=== PATIENT | male | born 1945 | race Two or more races ===

== ENCOUNTER 2020-07-16 03:25 | Inpatient (IN) | payer MEDICARE, OTHER ==
[2020-07-16] VITALS (7 sets, daily range): BP systolic 97–137; BP diastolic 24–52
[~2020-07-16] VITALS: Ht 162.6 cm; Wt 68.0 kg
--- NOTE | 2020-07-16 03:37 | Emergency Room Report ---
History of Present Illness General Chief Complaint: Dyspnea/Respdistress Source: Medical Record Present Illness HPI This is a 74-year-old male from a long term. He is a DNR with CPR only. He has a history of positive COVID infection in February. Also with history of diabetes and end-stage renal disease. Dialysis days are Tues, Th, and Sat. He presents with complaint of shortness of breath and increasing edema. No reported fever. Worse with exertion. Better with rest. Denies any trauma. Denies any chest pain. 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 COVID-19 Screening: Positive COVID-19 COVID-19 Testing Source: nar Patient History Past Medical History: see triage record, old chart reviewed Past Surgical History: other Pertinent Family History: none Social History: Denies: smoking Immunizations: other Reviewed Nursing Documentation: PMH: Agreed; PSxH: Agreed Review of Systems Eye: Denies: eye pain, blurred vision ENT: Denies: ear pain, nose congestion, throat swelling Respiratory: Reports: shortness of breath; Denies: cough Cardiovascular: Reports: edema; Denies: chest pain, palpitations Gastrointestinal: Denies: abdominal pain, diarrhea, nausea, vomiting Musculoskeletal: Denies: back pain, joint pain Skin: Denies: rash Neurological: Denies: headache, numbness Endocrine: Denies: increased thirst, increased urine Hematologic/Lymphatic: Denies: easy bruising All Other Systems: negative except mentioned in HPI Physical Exam Vital Signs Date Time Temp Pulse Resp B/P (MAP) Pulse Ox O2 Delivery O2 Flow Rate FiO2 07/16/20 03:25 98.1 110 30 93/56 (68) 100 Non-Rebreather 15.0 Vitals with hypoxia Sp02 EP Interpretation: reviewed, abnormal General Appearance: alert, moderate distress, Chronically Ill Head: normocephalic, atraumatic Eyes: bilateral eye PERRL, bilateral eye EOMI ENT: hearing grossly normal, normal pharynx Neck: full range of motion, supple, no meningismus Respiratory: chest non-tender, respiratory distress, decreased breath sounds, rales Cardiovascular #1: regular rate, rhythm, no murmur Gastrointestinal: normal bowel sounds, non tender, no mass, no organomegaly, no bruit, non-distended Musculoskeletal: back normal, normal range of motion, swelling - Generalized anasarca Psychiatric: mood/affect normal Procedures Critical Care Time Critical Care Time Critical care is mandated in this patient who presented with respiratory distress secondary to COVID pneumonia. Patient require my urgent intervention to attenuate the risks of metabolic collapse which may lead to cardiovascular collapse and . Critical care time is 35 minutes excluding any reportable procedure. Critical care time included evaluation, multiple reevaluation, looking at old charts, interpreting laboratory and diagnostic data, discussing case with patient and family and consultants, and charting. Medical Decision Making Diagnostic Impression: Primary Impression: Pneumonia due to COVID-19 virus Additional Impressions: Respiratory failure with hypoxia Qualified Codes: J96.01 - Acute respiratory failure with hypoxia Anemia, chronic renal failure Qualified Codes: N18.5 - Chronic kidney disease, stage 5; D63.1 - Anemia in chronic kidney disease Acute metabolic encephalopathy ESRD (end stage renal disease) on dialysis Anasarca ER Course Presents with respiratory distress secondary to cold with pneumonia and also fluid overloaded. Prognosis poor because of his multiple medical problems. Antibiotics, steroid and Lovenox given here. Patient will be admitted for further work-up. I discussed the case with Dr. Tom who will admit. EKG Diagnostic Results Rate: tachycardiac Rhythm: NSR ST Segments: other - NSST changes Rhythm Strip Diag. Results EP Interpretation: yes Rate: 100 Rhythm: NSR, no PVC's, no ectopy Chest X-Ray Diagnostic Results Chest X-Ray Diagnostic Results : Chest X-Ray Ordered: Yes # of Views/Limited/Complete: 1 View EP Interpretation: Yes Interpretation: no pneumothorax, other - Bilateral infiltrates and edema Impression: Other - b/l infiltrates and pulm edema. Electronically Signed by: Mike Mckay MD Last Vital Signs Date Time Temp Pulse Resp B/P (MAP) Pulse Ox O2 Delivery O2 Flow Rate FiO2 07/16/20 03:25 98.1 110 30 93/56 (68) 100 Non-Rebreather 15.0 Status: improved Disposition: ADMITTED INPATIENT Condition: Serious Mike Mckay MD Jul 16, 2020 03:36
[2020-07-16] MEDS ORDERED: cefTRIAXone 1 GM in NS 55 ML IV ONE (03:45)
[2020-07-16] MEDS ORDERED: Enoxaparin 80mg Inj SUBQ ONE (03:45)
[2020-07-16] MEDS ORDERED: Azithromycin 500 MG in NS 275 ML IVPB ONE (03:45)
[2020-07-16] MEDS ORDERED: dexAMETHasone 10mg/ml Inj IV ONE (03:45)
[2020-07-16 03:56] LABS: HEMATOCRIT 21.8 % (42.0-52.0); HEMOGLOBIN 7.2 G/DL (14.2-18.0); MEAN CORPUSCULAR VOLUME 84 FL (80-99); PLATELET COUNT 275 K/UL (150-450); RED BLOOD COUNT 2.59 M/UL (4.70-6.10); RED CELL DISTRIBUTION WIDTH 14.8 % (11.6-14.8); WHITE BLOOD COUNT 11.2 K/UL (4.8-10.8)
[2020-07-16 04:13] LABS: ANION GAP 8 mmol/L (5-15); BLOOD UREA NITROGEN 44 mg/dL (7-18); CALCIUM 7.3 MG/DL (8.5-10.1); CARBON DIOXIDE 26 MMOL/L (21-32); CHLORIDE 100 MMOL/L (98-107); CREATININE 4.3 MG/DL (0.55-1.30); POTASSIUM 4.3 MMOL/L (3.5-5.1); SODIUM 134 MMOL/L (136-145)
[2020-07-16 04:24] LABS: INR 1.1 (0.9-1.1)
[2020-07-16 04:28] LABS: ALBUMIN 1.3 G/DL (3.4-5.0); ALBUMIN/GLOBULIN RATIO 0.2 (1.0-2.7); ALKALINE PHOSPHATASE 172 U/L (46-116); ASPARTATE AMINO TRANSFERASE 94 U/L (15-37); BILIRUBIN,TOTAL 0.6 MG/DL (0.2-1.0); CKMB 2.7 NG/ML (0.0-3.6); CREATINE KINASE 312 U/L (26-308); FERRITIN 1531 NG/ML (8-388); LACTATE DEHYDROGENASE 537 U/L (81-234)
[2020-07-16 04:51] LABS: ALANINE AMINOTRANSFERASE 30 U/L (12-78)
[2020-07-16] MEDS ORDERED: AMLODIPINE BESY10 MG ORAL (05:03)
[2020-07-16] MEDS ORDERED: ATORVASTATIN CA20 MG ORAL (05:03)
[2020-07-16] MEDS ORDERED: URSODIOL300 MG ORAL (05:10)
[2020-07-16] MEDS ORDERED: MIRALAX17 G2 ORAL (05:10)
[2020-07-16] MEDS ORDERED: OMEPRAZOLE20 M2 ORAL (05:10)
[2020-07-16] MEDS ORDERED: ELIQUIS2.5 MG PO (05:10)
[2020-07-16] MEDS ORDERED: ZOFRAN4 M3 ORAL (05:10)
[2020-07-16] MEDS ORDERED: METOPROLOL TART25 MG ORAL (05:10)
[2020-07-16] MEDS ORDERED: ZYRTEC10 MG ORAL (05:10)
[2020-07-16] MEDS ORDERED: Tylenol #3 tab (300mg/30mg) ORAL PRN (08:15)
[2020-07-16] MEDS ORDERED: Miralax 17gm pkt ORAL PRN (09:00)
[2020-07-16] MEDS ORDERED: Albuterol/Ipratropium 3ml neb HHN PRN (09:00)
[2020-07-16] MEDS ORDERED: Azithromycin 250mg tab ORAL SCH (09:00)
[2020-07-16] MEDS ORDERED: Zolpidem 5mg tab ORAL PRN (09:00)
[2020-07-16] MEDS: Metoprolol Tartrate 12.5mg TAB ORAL SCH ×3 (09:40→21:42)
[2020-07-16] MEDS: Eliquis 2.5mg tablet ORAL SCH ×2 (09:41→17:46)
--- NOTE | 2020-07-16 10:17 | Consultation ---
History of Present Illness General Date patient seen: Jul 16, 2020 Chief Complaint: Dyspnea/Respdistress Reason for Consultation: COVID 19 PNA Present Illness HPI Mr. Suazo is a 74 yo male with PMHx of DM, ESRD on HD who presented to the ED on 07/15/20 from his long-term with SOB. He had COVID 19 infection in Jun 2020. His COVID 19 test in the ED was positive as well. He has no fever, mild leukocytosis. He was having SOB and increased edema and ZAVALA so was sent to the ED. CXR shows B/L infiltrates and pulm edema per ED read. Radiology read is pending. ID was consulted for COVID 19 PNA PMHx/PSHx DM ESRD on HD COVID 19 infection - 07/08/20 af SNF SocHx Lives at a SNF No E/T/D FamHx Not contributory Allergies: Coded Allergies: No Known Allergies (Unverified , 07/16/20) Medication History Scheduled Amlodipine Besylate* (Amlodipine Besylate*), 10 MG ORAL DAILY, (Reported) Apixaban (Eliquis), 2.5 MG PO BID, (Reported) Atorvastatin Calcium* (Atorvastatin Calcium*), 20 MG ORAL BEDTIME, (Reported) Cetirizine Hcl* (Zyrtec*), 10 MG ORAL DAILY, (Reported) Metoprolol Tartrate* (Metoprolol Tartrate*), 12.5 MG ORAL BID, (Reported) Omeprazole (Omeprazole), 20 MG ORAL DAILY, (Reported) Polyethylene Glycol 3350* (Miralax*), 17 GM ORAL DAILY, (Reported) Ursodiol (Ursodiol*), 250 MG ORAL TWICE A DAY, (Reported) Scheduled PRN Ondansetron* (Zofran*), 4 MG ORAL Q6H PRN for Nausea & Vomiting, (Reported) Patient History Healthcare decision maker Resuscitation status Advanced Directive on File Review of Systems ROS Narrative 12 point ROS negative except as noted in the HPI Physical Exam Physical Exam Narrative GEN: NAD on NRB HEENT: NCAT, MMM, EOMI NECK: Supple, good ROM LUNGS: CTAB, no W HEART: RRR, S1, S2 ABD: SOFT, NT, ND, + BS NEURO: A/O x 4 no focal deficits SKIN: No Rash, Normal in color Last 24 Hour Vital Signs Date Time Temp Pulse Resp B/P (MAP) Pulse Ox O2 Delivery O2 Flow Rate FiO2 07/16/20 09:41 97 137/52 07/16/20 09:40 97 137/52 07/16/20 08:15 Non-Rebreather 15.0 07/16/20 06:15 98.1 103 22 108/45 100 Non-Rebreather 15.0 07/16/20 05:35 98.1 103 22 115/52 100 Non-Rebreather 15.0 07/16/20 05:24 98.1 105 22 100/24 100 Non-Rebreather 15.0 07/16/20 03:35 105 26 Non-Rebreather 15.0 07/16/20 03:35 98.1 105 26 97/32 100 Non-Rebreather 15.0 07/16/20 03:25 98.1 110 30 93/56 (68) 100 Non-Rebreather 15.0 Intake and Output 07/15/20 07/16/20 19:00 07:00 Intake Total 0 ml Balance 0 ml Intake Oral 0 ml Laboratory Tests Test 07/16/20 03:30 White Blood Count 11.2 K/UL (4.8-10.8) H Red Blood Count 2.59 M/UL (4.70-6.10) L Hemoglobin 7.2 G/DL (14.2-18.0) L Hematocrit 21.8 % (42.0-52.0) L Mean Corpuscular Volume 84 FL (80-99) Mean Corpuscular Hemoglobin 27.8 PG (27.0-31.0) Mean Corpuscular Hemoglobin Concent 33.0 G/DL (32.0-36.0) Red Cell Distribution Width 14.8 % (11.6-14.8) Platelet Count 275 K/UL (150-450) Mean Platelet Volume 5.5 FL (6.5-10.1) L Neutrophils (%) (Auto) % (45.0-75.0) Lymphocytes (%) (Auto) % (20.0-45.0) Monocytes (%) (Auto) % (1.0-10.0) Eosinophils (%) (Auto) % (0.0-3.0) Basophils (%) (Auto) % (0.0-2.0) Prothrombin Time 12.0 SEC (9.30-11.50) H Prothromb Time International Ratio 1.1 (0.9-1.1) Activated Partial Thromboplast Time 35 SEC (23-33) H D-Dimer 2.35 mg/L FEU (0.00-0.49) H Sodium Level 134 MMOL/L (136-145) L Potassium Level 4.3 MMOL/L (3.5-5.1) Chloride Level 100 MMOL/L (98-107) Carbon Dioxide Level 26 MMOL/L (21-32) Anion Gap 8 mmol/L (5-15) Blood Urea Nitrogen 44 mg/dL (7-18) H Creatinine 4.3 MG/DL (0.55-1.30) H Estimat Glomerular Filtration Rate 13.6 mL/min (>60) Glucose Level 133 MG/DL (74-106) H Lactic Acid Level 1.80 mmol/L (0.4-2.0) Calcium Level 7.3 MG/DL (8.5-10.1) L Ferritin 1531 NG/ML (8-388) H Total Bilirubin 0.6 MG/DL (0.2-1.0) Aspartate Amino Transf (AST/SGOT) 94 U/L (15-37) H Alanine Aminotransferase (ALT/SGPT) 30 U/L (12-78) Alkaline Phosphatase 172 U/L (46-116) H Lactate Dehydrogenase 537 U/L (81-234) H Total Creatine Kinase 312 U/L (26-308) H Creatine Kinase MB 2.7 NG/ML (0.0-3.6) Creatine Kinase MB Relative Index 0.8 Troponin I 0.058 ng/mL (0.000-0.056) C-Reactive Protein, Quantitative 16.8 mg/dL (0.00-0.90) H Pro-B-Type Natriuretic Peptide > 28392 pg/mL (0-125) H Total Protein 6.8 G/DL (6.4-8.2) Albumin 1.3 G/DL (3.4-5.0) L Globulin 5.5 g/dL Albumin/Globulin Ratio 0.2 (1.0-2.7) L Lipase 88 U/L (73-393) Microbiology Date/Time Source Procedure Growth Status 07/16/20 04:20 Rectum Received 10/1/20 03:30 Nasopharynx SARS-CoV-2 RdRp Gene Assay - Final Complete Height (Feet): 5 Height (Inches): 4.00 Weight (Pounds): 150 Medications Current Medications Medications (Trade) Dose Ordered Sig/Ad Route PRN Reason Start Time Stop Time Status Last Admin Dose Admin Acetaminophen (Tylenol) 650 mg Q4H PRN ORAL fever 07/16/20 09:00 08/15/20 08:59 Acetaminophen/ Codeine Phosphate (Tylenol #3) 1 tab Q6H PRN ORAL For Pain 07/16/20 08:15 07/23/20 08:14 Albuterol/ Ipratropium (Combivent Respimat) 1 puff Q6H PRN INH Shortness of Breath 07/16/20 09:15 08/15/20 09:14 Amlodipine Besylate (Norvasc) 10 mg DAILY ORAL 07/16/20 09:00 08/15/20 08:59 07/16/20 09:41 Apixaban (Eliquis) 2.5 mg BID ORAL 07/16/20 09:00 10/14/20 08:59 07/16/20 09:41 Atorvastatin Calcium (Lipitor) 20 mg BEDTIME ORAL 07/16/20 21:00 10/14/20 20:59 Azithromycin (Zithromax) 250 mg DAILY ORAL 07/16/20 09:00 07/23/20 08:59 07/16/20 09:40 Ceftriaxone Sodium 1 gm/ Dextrose 55 ml @ 110 mls/hr Q24H IVPB 07/17/20 03:00 07/24/20 02:59 Clonidine HCl (Catapres Tab) 0.1 mg Q4H PRN ORAL For High Blood Pressure 07/16/20 09:00 10/14/20 08:59 Dexamethasone Sodium Phosphate (Decadron 4mg/ml vial) 6 mg DAILY IVP 07/16/20 09:00 07/25/20 09:01 07/16/20 09:41 Dextrose (Dextrose 50%) 25 ml Q30M PRN IV Hypoglycemia 07/16/20 08:15 10/14/20 08:14 Dextrose (Dextrose 50%) 50 ml Q30M PRN IV Hypoglycemia 07/16/20 08:15 10/14/20 08:14 Insulin Aspart (NovoLOG) BEFORE MEALS AND HS SUBQ 07/16/20 11:30 10/14/20 11:29 Metoprolol Tartrate (Lopressor) 12.5 mg Q12HR ORAL 07/16/20 09:00 10/14/20 08:59 07/16/20 09:40 Ondansetron HCl (Zofran) 4 mg Q6H PRN IVP Nausea & Vomiting 07/16/20 09:00 08/15/20 08:59 Polyethylene Glycol (Miralax) 17 gm HSPRN PRN ORAL Constipation 07/16/20 09:00 08/15/20 08:59 Zolpidem Tartrate (Ambien) 5 mg HSPRN PRN ORAL Insomnia 07/16/20 09:00 07/23/20 08:59 Assessment/Plan Assessment/Plan: 74 yo male with PMHx of DM, ESRD on HD who presented to the ED on 07/15/20 from his long-term with SOB. COVID 19 PNA CXR B.L infiltrates COVID 19 Pos [facility] - 07/08/20 and in ED on 07/15/20 No Fever Mild Leukocytosis DM ESRD on HD COVID 19 infection - 07/08/20 af SNF QTc 474 PLAN - Continue Ceftriaxone #2 and Azithromycin #2 - Continue Dexamethisone #2 - Monitor Respiratory status - Monitor CBC and Temps Thank you for this consult. [facility] will continue to follow Mr. Suazo with you. Babak Sharma MD Jul 16, 2020 10:17
--- NOTE | 2020-07-16 10:30 | Consultation ---
Consult Note Consult Note Asked to evaluate at the request of Dr. oTm for dialysis management I called care home, patient receives dialysis at [facility] under a care of !? 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 He is a DNR with CPR only. He has a history of positive COVID infection in February. Also with history of diabetes and end-stage renal disease. Dialysis days are Tues, Thurs, and Sat. He presents with complaint of shortness of breath and increasing edema. No reported fever. Worse with exertion. Better with rest. Denies any trauma. Denies any chest pain. 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 COVID-19 Screening: Positive COVID-19 COVID-19 Testing Source: derek Past Medical History: see triage record, old chart reviewed Past Surgical History: other Pertinent Family History: none Social History: Denies: smoking Immunizations: other Reviewed Nursing Documentation: PMH: Agreed; PSxH: Agreed Patient poor historian somewhat encephalopathic Lab data reviewed limited PE , uncooporative Last 24 Hour Vital Signs Date Time Temp Pulse Resp B/P (MAP) Pulse Ox O2 Delivery O2 Flow Rate FiO2 07/16/20 09:41 97 137/52 07/16/20 09:40 97 137/52 07/16/20 09:00 Non-Rebreather 15.0 07/16/20 08:15 Non-Rebreather 15.0 07/16/20 06:15 98.1 103 22 108/45 100 Non-Rebreather 15.0 07/16/20 05:35 98.1 103 22 115/52 100 Non-Rebreather 15.0 07/16/20 05:24 98.1 105 22 100/24 100 Non-Rebreather 15.0 07/16/20 03:35 105 26 Non-Rebreather 15.0 07/16/20 03:35 98.1 105 26 97/32 100 Non-Rebreather 15.0 07/16/20 03:25 98.1 110 30 93/56 (68) 100 Non-Rebreather 15.0 GEN: NAD on NRB HEENT: NCAT, MMM, NECK: Supple, Limited ROM LUNGS: decrease BS bases HEART: RRR, S1, S2, Tachy ABD: SOFT, NT, ND, + BS NEURO: Encephalopathic SKIN: No Rash, Normal in color . . Assessment/Plan Imp: End-stage renal disease on hemodialysis Pneumonia, COVID-19 virus Hypoxia due to pneumonia Anemia of chronic kidney disease Acute toxic metabolic encephalopathy Anasarca Elevated liver enzymes Plan: Hemodialysis today, [facility] Discontinue Lipitor due to elevated LFTs Protonix, stool softeners Continue per ID Anemia work-up Epogen subcu DC blood pressure medications, clonidine PRN for high blood pressure Continue per consultants Jefry Salgado MD Jul 16, 2020 10:30
--- NOTE | 2020-07-16 11:11 | Consultation ---
History of Present Illness General Date patient seen: Jul 16, 2020 Chief Complaint: Dyspnea/Respdistress Reason for Consultation: COVID 19 PNA Present Illness HPI 74-year-old male with a hx of ESRF, DM, HTN, positive COVID infection in February, skilled nursing resident presented to ER with complaint of shortness of breath and increasing edema. No reported fever. Worse with exertion. He was afebrile in ER and cxr was not done. He is on 1005 NRM and saturating borderline. Allergies: Coded Allergies: No Known Allergies (Unverified , 07/16/20) Medication History Scheduled Amlodipine Besylate* (Amlodipine Besylate*), 10 MG ORAL DAILY, (Reported) Apixaban (Eliquis), 2.5 MG PO BID, (Reported) Atorvastatin Calcium* (Atorvastatin Calcium*), 20 MG ORAL BEDTIME, (Reported) Cetirizine Hcl* (Zyrtec*), 10 MG ORAL DAILY, (Reported) Metoprolol Tartrate* (Metoprolol Tartrate*), 12.5 MG ORAL BID, (Reported) Omeprazole (Omeprazole), 20 MG ORAL DAILY, (Reported) Polyethylene Glycol 3350* (Miralax*), 17 GM ORAL DAILY, (Reported) Ursodiol (Ursodiol*), 250 MG ORAL TWICE A DAY, (Reported) Scheduled PRN Ondansetron* (Zofran*), 4 MG ORAL Q6H PRN for Nausea & Vomiting, (Reported) Patient History Healthcare decision maker Resuscitation status Advanced Directive on File Past Medical/Surgical History Past Medical/Surgical History: (1) History of hypertension (2) History of diabetes mellitus (3) ESRD (end stage renal disease) on dialysis Review of Systems All Other Systems: negative except mentioned in HPI Physical Exam General Appearance: WD/WN, no apparent distress Lines, tubes and drains: peripheral HEENT: normocephalic, atraumatic Neck: non-tender, supple Respiratory/Chest: chest wall non-tender, lungs clear Cardiovascular/Chest: normal peripheral pulses Abdomen: normal bowel sounds, non tender Extremities: normal range of motion Skin Exam: normal pigmentation Last 24 Hour Vital Signs Date Time Temp Pulse Resp B/P (MAP) Pulse Ox O2 Delivery O2 Flow Rate FiO2 07/16/20 09:41 97 137/52 07/16/20 09:40 97 137/52 07/16/20 09:00 Non-Rebreather 15.0 07/16/20 08:15 Non-Rebreather 15.0 07/16/20 06:15 98.1 103 22 108/45 100 Non-Rebreather 15.0 07/16/20 05:35 98.1 103 22 115/52 100 Non-Rebreather 15.0 07/16/20 05:24 98.1 105 22 100/24 100 Non-Rebreather 15.0 07/16/20 03:35 105 26 Non-Rebreather 15.0 07/16/20 03:35 98.1 105 26 97/32 100 Non-Rebreather 15.0 07/16/20 03:25 98.1 110 30 93/56 (68) 100 Non-Rebreather 15.0 l Intake and Output 07/15/20 07/16/20 19:00 07:00 Intake Total 0 ml Balance 0 ml Intake Oral 0 ml Laboratory Tests Test 07/16/20 03:30 White Blood Count 11.2 K/UL (4.8-10.8) H Red Blood Count 2.59 M/UL (4.70-6.10) L Hemoglobin 7.2 G/DL (14.2-18.0) L Hematocrit 21.8 % (42.0-52.0) L Mean Corpuscular Volume 84 FL (80-99) Mean Corpuscular Hemoglobin 27.8 PG (27.0-31.0) Mean Corpuscular Hemoglobin Concent 33.0 G/DL (32.0-36.0) Red Cell Distribution Width 14.8 % (11.6-14.8) Platelet Count 275 K/UL (150-450) Mean Platelet Volume 5.5 FL (6.5-10.1) L Neutrophils (%) (Auto) % (45.0-75.0) Lymphocytes (%) (Auto) % (20.0-45.0) Monocytes (%) (Auto) % (1.0-10.0) Eosinophils (%) (Auto) % (0.0-3.0) Basophils (%) (Auto) % (0.0-2.0) Prothrombin Time 12.0 SEC (9.30-11.50) H Prothromb Time International Ratio 1.1 (0.9-1.1) Activated Partial Thromboplast Time 35 SEC (23-33) H D-Dimer 2.35 mg/L FEU (0.00-0.49) H Sodium Level 134 MMOL/L (136-145) L Potassium Level 4.3 MMOL/L (3.5-5.1) Chloride Level 100 MMOL/L (98-107) Carbon Dioxide Level 26 MMOL/L (21-32) Anion Gap 8 mmol/L (5-15) Blood Urea Nitrogen 44 mg/dL (7-18) H Creatinine 4.3 MG/DL (0.55-1.30) H Estimat Glomerular Filtration Rate 13.6 mL/min (>60) Glucose Level 133 MG/DL (74-106) H Lactic Acid Level 1.80 mmol/L (0.4-2.0) Uric Acid Pending Calcium Level 7.3 MG/DL (8.5-10.1) L Iron Level Pending Unsaturated Iron Binding Pending Ferritin 1531 NG/ML (8-388) H Total Bilirubin 0.6 MG/DL (0.2-1.0) Aspartate Amino Transf (AST/SGOT) 94 U/L (15-37) H Alanine Aminotransferase (ALT/SGPT) 30 U/L (12-78) Alkaline Phosphatase 172 U/L (46-116) H Lactate Dehydrogenase 537 U/L (81-234) H Total Creatine Kinase 312 U/L (26-308) H Creatine Kinase MB 2.7 NG/ML (0.0-3.6) Creatine Kinase MB Relative Index 0.8 Troponin I 0.058 ng/mL (0.000-0.056) C-Reactive Protein, Quantitative 16.8 mg/dL (0.00-0.90) H Pro-B-Type Natriuretic Peptide > 21284 pg/mL (0-125) H Total Protein 6.8 G/DL (6.4-8.2) Albumin 1.3 G/DL (3.4-5.0) L Globulin 5.5 g/dL Albumin/Globulin Ratio 0.2 (1.0-2.7) L Lipase 88 U/L (73-393) Vitamin B12 Level Pending Folate Pending Microbiology Date/Time Source Procedure Growth Status 07/16/20 04:20 Rectum Received 07/16/20 03:30 Nasopharynx SARS-CoV-2 RdRp Gene Assay - Final Complete Height (Feet): 5 Height (Inches): 4.00 Weight (Pounds): 150 Medications Current Medications Medications (Trade) Dose Ordered Sig/Ad Route PRN Reason Start Time Stop Time Status Last Admin Dose Admin Acetaminophen (Tylenol) 650 mg Q4H PRN ORAL fever 07/16/20 09:00 08/15/20 08:59 Acetaminophen/ Codeine Phosphate (Tylenol #3) 1 tab Q6H PRN ORAL For Pain 07/16/20 08:15 07/23/20 08:14 Albuterol/ Ipratropium (Combivent Respimat) 1 puff Q6H PRN INH Shortness of Breath 07/16/20 09:15 08/15/20 09:14 Apixaban (Eliquis) 2.5 mg BID ORAL 07/16/20 09:00 10/14/20 08:59 07/16/20 09:41 Azithromycin (Zithromax) 250 mg DAILY ORAL 07/16/20 09:00 07/23/20 08:59 07/16/20 09:40 Ceftriaxone Sodium 1 gm/ Dextrose 55 ml @ 110 mls/hr Q24H IVPB 07/17/20 03:00 07/24/20 02:59 Clonidine HCl (Catapres Tab) 0.1 mg Q4H PRN ORAL For High Blood Pressure 07/16/20 09:00 10/14/20 08:59 Dexamethasone Sodium Phosphate (Decadron 4mg/ml vial) 6 mg DAILY IVP 07/16/20 09:00 07/25/20 09:01 07/16/20 09:41 Dextrose (Dextrose 50%) 25 ml Q30M PRN IV Hypoglycemia 07/16/20 08:15 10/14/20 08:14 Dextrose (Dextrose 50%) 50 ml Q30M PRN IV Hypoglycemia 07/16/20 08:15 10/14/20 08:14 Docusate Sodium (Colace) 100 mg TWICE A DAY ORAL 07/16/20 18:00 08/15/20 17:59 Epoetin Tomas (Epoetin Tomas(ESRD on dialysis)) 10,000 unit MON-MON-MON SUBQ 07/17/20 21:00 10/15/20 20:59 Insulin Aspart (NovoLOG) BEFORE MEALS AND HS SUBQ 07/16/20 11:30 10/14/20 11:29 Metoprolol Tartrate (Lopressor) 12.5 mg Q12HR ORAL 07/16/20 09:00 10/14/20 08:59 07/16/20 09:40 Ondansetron HCl (Zofran) 4 mg Q6H PRN IVP Nausea & Vomiting 07/16/20 09:00 08/15/20 08:59 Pantoprazole (Protonix) 40 mg DAILY ORAL 07/16/20 10:45 08/15/20 10:44 Polyethylene Glycol (Miralax) 17 gm HSPRN PRN ORAL Constipation 07/16/20 09:00 08/15/20 08:59 Zolpidem Tartrate (Ambien) 5 mg HSPRN PRN ORAL Insomnia 07/16/20 09:00 07/23/20 08:59 Assessment/Plan Problem List: (1) Respiratory failure with hypoxia ICD Codes: J96.91 - Respiratory failure, unspecified with hypoxia SNOMED: 72221250196773910 Qualifiers: Qualified Codes: J96.01 - Acute respiratory failure with hypoxia (2) Pneumonia due to COVID-19 virus ICD Codes: U07.1 - COVID-19; J12.89 - Other viral pneumonia SNOMED: 801659274467990337 (3) ESRD (end stage renal disease) on dialysis ICD Codes: N18.6 - End stage renal disease; Z99.2 - Dependence on renal dialysis SNOMED: 712032084, [id number] (4) Anemia, chronic renal failure ICD Codes: N18.9 - Chronic kidney disease, unspecified; D63.1 - Anemia in chronic kidney disease SNOMED: [id number], [id number] Qualifiers: Qualified Codes: N18.5 - Chronic kidney disease, stage 5; D63.1 - Anemia in chronic kidney disease (5) History of hypertension ICD Codes: Z86.79 - Personal history of other diseases of the circulatory system SNOMED: 146202917 (6) History of diabetes mellitus ICD Codes: Z86.39 - Personal history of other endocrine, nutritional and metabolic disease SNOMED: 155102543 Assessment/Plan: titrate fio2 to sat of 92% breathing treatment abx as per ID HD by nephrology prbc prn dvt prophylaxis monitor BP Matt Michael MD Jul 16, 2020 11:11
[2020-07-16] MEDS ORDERED: NovoLOG Insulin Flexpen SUBQ SCH (11:30)
[2020-07-16] MEDS: NovoLOG Insulin Flexpen SUBQ SCH ×3 (11:30→21:00)
[2020-07-16 11:54] LABS: % IRON SATURATION 15 % (15-50); IRON 20 ug/dL (50-175); TOTAL IRON BINDING CAPACITY 131 ug/dL (250-450)
--- NOTE | 2020-07-16 12:35 | Diagnostic Imaging Report ---
Indication: Shortness of breath Technique: One view of the chest Comparison: none Findings: There are bilateral diffuse interstitial and airspace opacities. There are bilateral pleural effusions. The heart is enlarged. There is a left jugular tunneled dialysis catheter. There is evidence of prior median sternotomy Impression: Diffuse extensive bilateral interstitial and airspace edema versus infiltrates. Bilateral pleural effusions Cardiomegaly Other findings as noted
--- NOTE | 2020-07-16 16:47 | History & Physical ---
History and Physical History & Physicial Dictated for int Med-Dr Tom no. [id number]. Cameron Choi MD Jul 16, 2020 16:47
--- NOTE | 2020-07-16 17:33 | Cardiology Report ---
APPROVED REPORT EKG Measurement Heart [id number] <Conclusion> Sinus tachycardia NS ST-T abnormality Abnormal ECG
[2020-07-16] MEDS ORDERED: Docusate 100mg cap ORAL SCH (18:00)
--- NOTE | 2020-07-16 18:15 | History and Physical Report ---
DATE OF ADMISSION: 07/16/2020 CHIEF COMPLAINT: Patient is a 74-year-old female, who presents with a chief complaint of shortness of breath and bilateral lower extremity swelling. HISTORY OF PRESENT ILLNESS: Patient is a resident of [facility]. Patient tested COVID positive in February of 2020. Patient states history of present illness began 2 days prior to admission. Patient began to experience shortness of breath. Patient also noticed swelling of the bilateral lower extremities. Patient presented to [facility] emergency room. Patient tested positive for COVID-19. Patient was also found to have bilateral infiltrates on the chest x-ray. Patient is admitted with COVID-19 pneumonia and edema. REVIEW OF SYSTEMS: CONSTITUTIONAL: Patient denies weight loss or gain. Patient denies fevers or chills. HEENT: Patient denies ear or throat pain. Patient denies headache. CARDIOVASCULAR: Patient denies palpitations or chest pain. CHEST: Patient complains of shortness of breath. Patient denies wheezes. ABDOMEN: Patient denies nausea, vomiting, diarrhea, or constipation. GENITOURINARY: Patient denies dysuria or increased frequency of urination. NEUROMUSCULAR: Patient complains of bilateral lower extremity swelling as above. Patient denies seizures or generalized weakness. PAST MEDICAL HISTORY: Significant for: 1. Type 2 diabetes. 2. Hypertension. 3. End-stage renal disease, on hemodialysis every Monday, , and Monday. 4. COVID-19 positive in February of 2020. 5. Atrial flutter. 6. Iron deficiency anemia. PAST SURGICAL HISTORY: Significant for arteriovenous graft for dialysis. CURRENT MEDICATIONS: 1. Amlodipine 10 mg 1 tablet p.o. daily. 2. Atorvastatin 20 mg p.o. at bedtime. 3. Cetirizine 5 mg p.o. daily. 4. Eliquis 2.5 mg p.o. twice daily. 5. Metoprolol 12.5 mg p.o. twice daily. 6. MiraLAX 17 g p.o. p.r.n. constipation. 7. Nephro-Simran 0.8 mg p.o. daily. 8. Nordheim-3 1000 mg p.o. daily. 9. Omeprazole 20 mg p.o. daily. 10. Tylenol extra-strength 500 mg p.o. q.4h. p.r.n. 11. Ursodiol 250 mg p.o. twice daily. 12. Vitamin C 500 mg p.o. daily. 13. Vitamin D3 1000 units p.o. daily. 14. Zofran 4 mg p.o. q.4h. p.r.n. ALLERGIES: No known drug allergies. SOCIAL HISTORY: Patient is a and is a resident of [facility]. Patient denies tobacco or alcohol use. PHYSICAL EXAMINATION: VITAL SIGNS: Temperature 98.1, respirations 30, pulse 110, blood pressure 93/56, pulse ox 100% on 100% non-rebreather. GENERAL: Patient is well-developed, well-nourished female, in no apparent distress. HEENT: Eyes, pupils are equal and responsive to light and accommodation. Extraocular movements are intact. NECK: Supple without lymphadenopathy. CHEST: Lungs are clear to auscultation bilaterally without wheezes or rales. CARDIOVASCULAR: Regular rhythm and rate. S1, S2 are normal without murmurs, rubs, or gallops. ABDOMEN: Soft, nontender, nondistended. Positive bowel sounds. No evidence of hepatosplenomegaly. Currently, no rebound or guarding noted. EXTREMITIES: Negative for clubbing, cyanosis, or edema. RECTAL/GENITAL: Refused. NEUROLOGIC: Cranial nerves II through XII are grossly intact without focal deficits. Motor strength is 5/5 bilaterally. Deep tendon reflexes are 2+ plantar. LABORATORY STUDIES: WBC 11.2, hemoglobin 7.2, hematocrit 21.8, platelets 275,000. Sodium 134, potassium 4.3, chloride 100, CO2 26, BUN 44, creatinine 4.3, glucose 133. Chest x-ray was reported as bilateral interstitial opacities and bilateral pleural effusions. ASSESSMENT: This is a 74-year-old female. 1. Shortness of breath. 2. Edema. 3. COVID-19 positive. 4. Bilateral pneumonia. 5. Bilateral pleural effusion. 6. Diabetes type 2. 7. Hypertension. 8. Atrial flutter. 9. End-stage renal disease. 10. Iron deficiency anemia. 11. Stage III decubitus ulcer of the right buttock. 12. Hypercholesterolemia. TREATMENT: 1. COVID-19 positive/bilateral pneumonia. A Pulmonary consultation has been obtained with Dr. Matt Michael. Follow recommendations of Pulmonary. 2. End-stage renal disease. A Nephrology consultation has been obtained with Dr. Salgado. Patient is scheduled for dialysis today. We will follow recommendations of Nephrology. 3. Bilateral pleural effusion. As above, a Pulmonary consultation has been obtained with Dr. Matt Michael. 4. Diabetes type 2. NovoLog sliding scale has been instituted. 5. Hypertension. Continue amlodipine and metoprolol as above. 6. Atrial flutter. A Cardiology consultation has been obtained with Dr. Matt Tapia. 7. Iron deficiency anemia. 8. Stage III decubitus ulcer of the right buttock. 9. Hypercholesterolemia. Cameron Choi M.D. DR: ZURI JOB#: [id number] CC:
[2020-07-16] MEDS ORDERED: Atorvastatin 20mg tab ORAL SCH (21:00)
[2020-07-16] MEDS ORDERED: Metoprolol Tartrate 12.5mg TAB ORAL SCH (23:00)
[2020-07-17] VITALS: BP 114/55
[2020-07-17] MEDS ORDERED: cefTRIAXone 1 GM in D5W 55 ML IVPB SCH (03:00)
--- NOTE | 2020-07-17 05:24 | Emergency Room Report ---
History of Present Illness General Chief Complaint: Dyspnea/Respdistress Source: Medical Record Present Illness HPI CODE BLUE called overhead for this patient. I responded to code. RT was already bagging patient. Code status was initially unknown by primary nurse. Epi and bicarb given. Code status was then identified. Patient is DNR/DNI. Code was stopped per POLST. Patient was pronounced at 0058. 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 COVID-19 Screening: Positive COVID-19 COVID-19 Testing Source: [facility] Nursing Documentation-[facility] Past Medical History: No History, Except For Hx Cardiac Problems: Yes - A FLUTTER, HYPERCHOLESTEREMIA, ATHEROSCLERORTIC HEART DISEASE Hx Hypertension: Yes Hx Pacemaker: No Hx Asthma: No Hx Diabetes: Yes Hx Cancer: No Hx Gastrointestinal Problems: Yes - GERD Hx Dialysis: Yes - M W F, [facility] CHEST History Of Psychiatric Problem: Yes Hx Neurological Problems: Yes - SZ Hx Seizures: Yes Physical Exam Vital Signs Date Time Temp Pulse Resp B/P (MAP) Pulse Ox O2 Delivery O2 Flow Rate FiO2 07/16/20 03:25 98.1 110 30 93/56 (68) 100 Non-Rebreather 15.0 Sp02 EP Interpretation: abnormal Medical Decision Making Diagnostic Impression: Primary Impression: Pneumonia due to COVID-19 virus Additional Impressions: Respiratory failure with hypoxia Qualified Codes: J96.01 - Acute respiratory failure with hypoxia Anasarca Acute metabolic encephalopathy ESRD (end stage renal disease) on dialysis Anemia, chronic renal failure Qualified Codes: N18.5 - Chronic kidney disease, stage 5; D63.1 - Anemia in chronic kidney disease Cardiopulmonary arrest Last Vital Signs Date Time Temp Pulse Resp B/P (MAP) Pulse Ox O2 Delivery O2 Flow Rate FiO2 07/17/20 00:00 54 07/17/20 00:00 96.4 24 114/55 (74) 94 07/16/20 21:00 Non-Rebreather 15.0 Disposition: ADMITTED INPATIENT Admit Decision Time: 00:58 Condition: Referrals: NON PHYSICIAN (PCP) Yelena Barajas D.O. Jul 17, 2020 05:24
--- NOTE | 2020-07-17 13:32 | Cardiology Report ---
APPROVED REPORT EXAM: Two-dimensional and M-mode echocardiogram with Doppler and color Doppler. INDICATION Atrial flutter M-Mode DIMENSIONS IVSd0.9 (0.7-1.1cm)Left Atrium (MM)3.6 (1.6-4.0cm) LVDd4.6 (3.5-5.6cm)Aortic Root3.0 (2.0-3.7cm) PWd0.9 (0.7-1.1cm)Aortic Cusp Exc.1.6 (1.5-2.0cm) IVSs1.1 cmEPSS0.7 (>1.0cm) LVDs3.5 (2.5-4.0cm) PWs1.3 cm <Conclusion> Normal left ventricular chamber size, systolic function and wall motion. Left ventricular ejection fraction estimated to be 55-60 %. No evidence of left ventricular hypertrophy. No evidence of pericardial effusion. All other cardiac chamber sizes are within normal limits. Focal aortic valve sclerosis with adequate cusp excursion. Thickened mitral valve leaflets with normal excursion. Mild to moderate mitral annulus and aortic root calcification. Normal pulmonic valve structure. Normal tricuspid valve structure. IVC at normal size with physiologic collapse A color flow and spectral Doppler study was performed and revealed: Trace aortic regurgitation. Mild to moderate mitral regurgitation. Mitral inflow indicate normal left ventricular diastolic function. Moderate to severe tricuspid regurgitation. Tricuspid systolic velocities suggests peak right ventricular systolic pressure of 97 mmHg, consistent with severe pulmonary hypertension. Mild pulmonic regurgitation present.
[2020-07-17] MEDS ORDERED: Epoetin Alfa-EPBX(ESRD on dialysis)10,000 unit/ml vial SUBQ SCH (21:00)
--- NOTE | 2020-07-19 11:11 | Discharge Summary ---
Discharge Summary Discharge Summary _ DATE OF ADMISSION: 07/16/2020 DATE OF DISCHARGE: 07/17/2020 BRIEF SUMMARY: Patient is an unfortunate 74-year-old female, who presented to the hospital due to shortness of breath and bilateral lower extremities swelling. Patient resides at [facility]. She tested positive for cocaine in February 2020. 2 days prior to admission, patient began to experience shortness of breath. She also noted swelling of the bilateral lower extremities. She has medical history significant for type 2 diabetes, hypertension, end-stage renal disease, on hemodialysis Monday, and Monday, atrial flutter and iron deficiency anemia. Upon evaluation at ED, blood pressure was 93/56, heart rate 110. She was afebrile. Patient was 100% nonrebreather mask. Blood work showed WBC of 11. Hemoglobin 7, hematocrit 22. Sodium 134. BUN 44 and creatinine 4.3. Troponin was 0.058. proBNP was greater than 35,000. Ferritin, total CK, LDH, CRP were elevated. Chest x-ray showed bilateral infiltrates and edema. COVID test was positive. Patient was started on antibiotics, steroids and Lovenox. Patient was admitted for evaluation of pneumonia, respiratory failure and anemia She was admitted to monitored floor. She was started empirically on ceftriaxone and azithromycin. She was started on dexamethasone. Blood pressure medications were placed on hold. Lipitor was discontinued due to elevated LFTs. She was given Protonix for GI prophylaxis. She was given Epogen at subcutaneous for anemia. Heart rate went down. Patient was unresponsive. She did not respond to IV resuscitative efforts. Patient eventually . FINAL DIAGNOSES: Cardiopulmonary arrest COVID-19 pneumonia Diabetes type 2 Hypertension Atrial flutter End-stage renal disease Anemia of chronic kidney disease Stage III decubitus ulcer of the right buttock, present on admission Hypercholesterolemia Acute toxic metabolic encephalopathy Elevated liver enzymes DISPOSITION: Patient . I have been assigned to complete a discharge summary on this account, I was not involved with the patient's management.--JALYN Licona Jacqueline Robles NP Jul 19, 2020 11:11
== END 2020-07-17 00:58 | disposition expired | DRG 177 ==
LOC: EDBD 03:25 → EMR 03:42 → 2E 04:22 → EDBEDREQ 04:40 → 2E 12:53
DX: U07.1 COVID-19 (principal); L89.313 Pressure ulcer of right buttock, stage 3; J12.89 Other viral pneumonia; N18.6 End stage renal disease; G92 Toxic encephalopathy; J96.91 Respiratory failure, unspecified with hypoxia; I48.3 Typical atrial flutter; I12.0 Hypertensive chronic kidney disease with stage 5 chronic kidney disease or end stage renal disease; I48.92 Unspecified atrial flutter; D63.1 Anemia in chronic kidney disease; E11.22 Type 2 diabetes mellitus with diabetic chronic kidney disease; D50.9 Iron deficiency anemia, unspecified; E78.00 Pure hypercholesterolemia, unspecified; Z66 Do not resuscitate; Z99.2 Dependence on renal dialysis; Z79.01 Long term (current) use of anticoagulants
CPT/HCPCS: 36415; 71045; 80053; 82270; 82550; 82553; 82607; 82728; 82746; 82962; 83540; 83550; 83605; 83615; 83690; 83880; 84484; 84550; 85025; 85379; 85610; 85730; 86140; 87040; 87081; 87324; 93005; 93306; 96365; 96368; 96372; 96375; 99291; J1815; U0002